=== PATIENT | female | born 1965 | race Caucasian/White ===

== ENCOUNTER 2016-09-19 06:07 | Emergency (ER) | payer MEDICAID ==
[2016-09-19 06:22] VITALS: BMI 25.0
--- NOTE | 2016-09-19 06:26 | C.PDOC ---
History Of Present Illness <Srinivasa Paiz R - Last Filed: 09/19/16 06:32> <BrittanyJocelin A - Last Filed: 09/23/16 18:00> Patient is a 50 year old female who presents to the ER with a complaint of chest pain for the past 4 days. Patient states the pain is localized to the left chest wall and radiates to the left shoulder; reports the pain increases with movement and deep breathing. Denies SOB, nausea, or vomiting. (ChenchoSrinivasa Levine ) History Per: Patient History/Exam Limitations: no limitations Onset/Duration Of Symptoms: Days (4) Current Symptoms Are (Timing): Still Present Associated Symptoms: denies: Nausea, Dyspnea Exacerbating Factors: Movement, Deep Breathing Alleviating Factors: None Recent travel outside of the [place]: No <Srinivasa Paiz - Last Filed: 09/19/16 06:32> <Brittany,Jocelin A - Last Filed: 09/23/16 18:00> Chief Complaint (Nursing): Chest Pain Past Medical History Reviewed: Historical Data, Nursing Documentation, Vital Signs - Medical History PMH: No Chronic Diseases Surgical History: No Surg Hx Family History: States: Unknown Family Hx - Social History Hx Tobacco Use: Yes Hx Alcohol Use: No Hx Substance Use: No - Immunization History Hx Tetanus Toxoid Vaccination: No Hx Influenza Vaccination: No Hx Pneumococcal Vaccination: No <Srinivasa Paiz - Last Filed: 09/19/16 06:32> Review Of Systems Constitutional: Negative for: Fever, Chills Cardiovascular: Positive for: Chest Pain Respiratory: Negative for: Shortness of Breath Gastrointestinal: Negative for: Nausea, Vomiting Musculoskeletal: Positive for: Shoulder Pain <Srinivasa Paiz - Last Filed: 09/19/16 06:32> Physical Exam - Physical Exam Appears: Non-toxic, Other (Mild distress) Skin: Normal Color, Warm, Dry Head: Atraumatic, Normacephalic Oral Mucosa: Moist Chest: Symmetrical, Tenderness (Left upper outer chest wall, worsened with movement of shoulder) Cardiovascular: Rhythm Regular, No Murmur Respiratory: Normal Breath Sounds, No Rales, No Rhonchi, No Wheezing Gastrointestinal/Abdominal: Soft, No Tenderness Extremity: Normal ROM, No Tenderness Neurological/Psych: Oriented x3, Normal Speech, Normal Cognition <Srinivasa Paiz - Last Filed: 09/19/16 06:32> ED Course And Treatment ECG: Interpreted By Me, Viewed By Me ECG Interpretation: Normal, No Acute Changes Interpretation Of ECG: NSR, normal tracings. Rate From EC Pulse Ox Interpretation: Normal Progress Note: EKG, blood work, CXR, and urinalysis ordered. Toradol administered. <Srinivasa Paiz - Last Filed: 09/19/16 06:32> - Laboratory Results Result Diagrams: 09/19/16 06:55 09/19/16 06:55 <Jocelin Soto - Last Filed: 09/23/16 18:00> Disposition <Srinivasa Paiz - Last Filed: 09/19/16 06:32> Counseled Patient/Family Regarding: Studies Performed, Diagnosis, Need For Followup, Rx Given - Disposition Disposition Time: 08:35 - POA Present On Arrival: None <Jocelin Soto - Last Filed: 09/23/16 18:00> - Disposition Referrals: Eladio Willson MD [Medical Doctor] - Disposition: HOME/ ROUTINE Condition: STABLE Additional Instructions: FOLLOW UP WITH YOUR DOCTOR IN 1-2 DAYS USE MEDICATIONS NEEDED RETURN TO ER IF SYMPTOMS WORSEN Prescriptions: Cyclobenzaprine [Cyclobenzaprine HCl] 10 mg PO BID PRN #12 tab PRN Reason: pain/muscle Naproxen [Naprosyn Tab] 375 mg PO BID PRN #15 tab PRN Reason: pain Instructions: Chest Wall Pain (ED) Print Language: CITIZEN OF [place] - Clinical Impression Clinical Impression: Chest wall pain, Muscle spasm - Scribe Statement The provider has reviewed the documentation as recorded by the Scribe <Srinivasa Paiz - Last Filed: 09/19/16 06:32> <Jocelin Soto - Last Filed: 09/23/16 18:00> - Scribe Statement Sebastien Norris All medical record entries made by the Scribe were at my direction and personally dictated by me. I have reviewed the chart and agree that the record accurately reflects my personal performance of the history, physical exam, medical decision making, and the department course for this patient. I have also personally directed, reviewed, and agree with the discharge instructions and disposition. (Srinivasa Paiz) Addendum <Srinivasa aPiz - Last Filed: 09/19/16 06:32> <Jocelin Soto - Last Filed: 09/23/16 18:00> Addendum: 09/19/16 08:30 Patient resting comfortably, in no current pain/distress. States her pain has improved, she can now move her left arm/shoulder without pain. Denies falls /injuries, HTN/hyperlipidemia, DM, tobacco use, family history of [place]. Suspect musculoskeletal pain - blood work, EKG, CXR normal. Patient dishcharged home with rxs for Naprosyn, Flexeril and instructed to follow up with PMD in 1-2 days. (Jocelin Soto)
[2016-09-19 07:00] LABS: BASO # 0.1 K/uL (0.0-0.2); BASO % 1.9 % (0.0-2.0); EOS # 0.4 K/uL (0.0-0.7); EOS % 6.4 % (0.0-4.0); HEMATOCRIT 35.3 % (34.0-47.0); LYMPH # 1.9 K/uL (1.0-4.3); LYMPH % 33.2 % (20.0-40.0); MEAN CORPUSCULAR HEMOGLOBIN 28.4 pg (27.0-31.0); MEAN CORPUSCULAR HGB CONC 33.1 g/dL (33.0-37.0); MEAN PLATELET VOLUME 8.3 fL (7.2-11.7); MONO # 0.5 K/uL (0.0-0.8); MONO % 8.2 % (0.0-10.0); RED CELL DISTRIBUTION WIDTH 14.5 % (11.5-14.5); WHITE BLOOD COUNT 5.7 K/uL (4.8-10.8)
[2016-09-19 07:15] LABS: CHLORIDE 108 mmol/L (98-107); POTASSIUM 4.5 mmol/L (3.6-5.2); SODIUM 141 mmol/L (132-148)
[2016-09-19 07:18] LABS: ALKALINE PHOSPHATASE 90 U/L (38-126); ALT/SGPT 34 U/L (9-52); AST/SGOT 36 U/L (14-36); BILIRUBIN,TOTAL 0.7 mg/dL (0.2-1.3); BLOOD UREA NITROGEN 19 mg/dL (7-17); CALCIUM 8.9 mg/dl (8.6-10.4); CARBON DIOXIDE 26 mmol/L (22-30); GFR AFRICAN-AMERICAN > 60; GLUCOSE,RANDOM 93 mg/dL (65-105); TOTAL PROTEIN 7.7 g/dL (6.3-8.3)
[2016-09-19 07:35] VITALS: TEMP 97.8
--- NOTE | 2016-09-19 08:00 | RAD ---
HISTORY: chest pain COMPARISON: No prior. TECHNIQUE: Chest PA and lateral FINDINGS: LUNGS: No active pulmonary disease. PLEURA: No significant pleural effusion identified. No pneumothorax apparent. CARDIOVASCULAR: Normal. OSSEOUS STRUCTURES: No significant abnormalities. VISUALIZED UPPER ABDOMEN: Normal. OTHER FINDINGS: None. IMPRESSION: No active disease.
[2016-09-19 08:44] VITALS: BP 117/75; PULSE 57; RESP 18; O2SAT 100
--- NOTE | 2016-09-19 22:40 | CARD ---
APPROVED REPORT EKG Measurement Heart [id number] <Conclusion> Normal sinus rhythm Normal ECG
== END 2016-09-19 08:45 | disposition home or self-care (01) ==
LOC: C.ER 06:07
DX: R07.89 Other chest pain (principal); M62.838 Other muscle spasm
CPT/HCPCS: 71020; 80053; 84484; 84703; 85025; 85378; 93005; 96374; 99285; J1885

== ENCOUNTER 2017-03-24 08:53 | Emergency (ER) | payer MEDICAID ==
[2017-03-24 08:53] VITALS: BMI 25.0
[2017-03-24 08:59] VITALS: RESP 18
--- NOTE | 2017-03-24 09:16 | C.PDOC ---
History Of Present Illness Pt is a 51 yo female with PMH signif for tendinitis who now presents with c/o R sided low back pain for the last 2 days.Pt cannot recall any specific injury but does do lots of lifting..States pain is to the R side of her low back, radiates down into her RLE and sole of her foot.Denies any abd pain,no fevers Time Seen by Provider: 03/24/17 09:14 Chief Complaint (Nursing): Back Pain Past Medical History Vital Signs: Last Vital Signs Temp 97.5 F L 03/24/17 10:33 Pulse 61 03/24/17 10:33 Resp 18 03/24/17 10:33 BP 108/69 03/24/17 10:33 Pulse Ox 97 03/24/17 10:33 Family History: States: Unknown Family Hx - Social History Hx Tobacco Use: Yes Hx Alcohol Use: Yes Hx Substance Use: No - Immunization History Hx Tetanus Toxoid Vaccination: No Hx Influenza Vaccination: No Hx Pneumococcal Vaccination: No ED Course And Treatment O2 Sat by Pulse Oximetry: 100 Disposition - Disposition Referrals: [facility] [Outside] Disposition: HOME/ ROUTINE Disposition Time: 18:47 Condition: GOOD Prescriptions: Ibuprofen [Motrin Tab] 800 mg PO TID PRN #21 tab PRN Reason: pain Instructions: Sciatica (ED) Forms: Gen Discharge Inst Estonian, [facility] (Estonian) Print Language: JAPANESE - Clinical Impression Clinical Impression: Low back pain, Sciatica
[2017-03-24 10:33] VITALS: BP 108/69; PULSE 61; TEMP 97.5
[2017-03-24 18:48] VITALS: O2SAT 100
== END 2017-03-24 10:35 | disposition home or self-care (01) ==
LOC: C.ER 08:53
DX: M54.40 Lumbago with sciatica, unspecified side (principal); Z87.891 Personal history of nicotine dependence
CPT/HCPCS: 96372; 99284; J1885

== ENCOUNTER 2017-03-28 06:11 | Emergency (ER) | payer MEDICAID ==
[2017-03-28 06:12] VITALS: BMI 25.0
[2017-03-28 06:40] VITALS: RESP 18
[2017-03-28] MEDS ORDERED: Dexamethasone 4 mg/1 ml IVP STA (07:45)
--- NOTE | 2017-03-28 07:54 | C.PDOC ---
History Of Present Illness Patient reports 1 week history of low back pain which radiates down right leg and pain when she breathes in the back. Patient states that for the past 2 days she feels pain in her right leg and it appears more swollen than usual. Patient reports that she was seen here for similar symptoms 3 days ago, but the symptoms persist prompting visit. Denies numbness, weakness, chest pain, trauma/ fall, fever, abdominal pain, or neck pain. Time Seen by Provider: 03/28/17 07:21 Chief Complaint (Nursing): Lower Extremity Problem/Injury History Per: Patient History/Exam Limitations: no limitations Onset/Duration Of Symptoms: Persistent Current Symptoms Are (Timing): Worse Severity: Moderate Pain Scale Rating Of: 6 Recent travel outside of the [place]: No Past Medical History Reviewed: Historical Data, Nursing Documentation, Vital Signs Vital Signs: Last Vital Signs Temp 98.2 F 03/28/17 10:01 Pulse 65 03/28/17 10:01 Resp 18 03/28/17 10:01 BP 154/80 H 03/28/17 10:01 Pulse Ox 100 03/29/17 11:35 - Medical History PMH: No Chronic Diseases Surgical History: No Surg Hx Family History: States: Other Other Family History: DM - Social History Hx Tobacco Use: Yes Hx Alcohol Use: Yes Hx Substance Use: Yes - Immunization History Hx Tetanus Toxoid Vaccination: No Hx Influenza Vaccination: No Hx Pneumococcal Vaccination: No Review Of Systems Except As Marked, All Systems Reviewed And Found Negative. Musculoskeletal: Positive for: Back Pain, Leg Pain Physical Exam - Physical Exam Appears: Well, No Acute Distress Skin: Normal Color, Warm, Dry, No Rash Head: Atraumatic, Normacephalic Eye(s): bilateral: Normal Inspection, PERRL, EOMI Nose: Normal Oral Mucosa: Moist Throat: Normal, No Erythema, No Exudate Neck: Normal ROM, No Midline Cervical Tenderness, No Paracervical Tenderness, Supple Chest: Symmetrical, No Tenderness Cardiovascular: Rhythm Regular, No Friction Rub, No Murmur Respiratory: Normal Breath Sounds, No Rales, No Rhonchi, No Wheezing Gastrointestinal/Abdominal: Normal Exam, Soft, No Tenderness Back: Normal Inspection, No CVA Tenderness, Paraspinal Tenderness (right sided paralumbar ), Other (No midline tenderness) Extremity: Normal ROM, Calf Tenderness (Mild Right calf tenderness), No Swelling Pulses: Left Femoral: Normal, Right Femoral: Normal, Left Dorsalis Pedis: Normal , Right Dorsalis Pedis: Normal Neurological/Psych: Oriented x3, Normal Speech, Normal Motor Gait: Steady ED Course And Treatment - Laboratory Results Result Diagrams: 03/28/17 08:06 03/28/17 08:06 O2 Sat by Pulse Oximetry: 100 (on RA) Pulse Ox Interpretation: Normal Medical Decision Making Medical Decision Making: Old records reviewed, the patient was last seen in the ED on 03/24/17 for low back pain, was given pain medications and discharged home. Patient is negative for DVT and D dimer is negative. On re-exam, the patient reports improvement of symptoms. Lungs are CTA, heart is RRR, abdomen is soft, non-tender and tolerating PO well. No numbness, weakness or focal deficits, Ambulatory in the ED with steady gait Disposition - Disposition Referrals: Fei Telles MD [Non-Staff] - Disposition: HOME/ ROUTINE Disposition Time: 09:31 Condition: GOOD Additional Instructions: Follow up with the medical doctor within 1-2 days. Return if worsened. Prescriptions: Cyclobenzaprine [Cyclobenzaprine HCl] 10 mg PO BID #14 tab Lidocaine 5% [Lidoderm] 1 each TP DAILY #10 patch Naproxen [Naprosyn] 500 mg PO BID #20 tab Instructions: Lumbar Radiculopathy (ED) Forms: [employer] (Yi) - Clinical Impression Clinical Impression: Sciatica, Lumbar radiculopathy
[2017-03-28] MEDS ORDERED: Dexamethasone 4 mg/1 ml ONE (07:56)
[2017-03-28 08:25] LABS: BASO % 0.8 % (0.0-2.0); EOS # 0.2 K/uL (0.0-0.7); EOS % 3.6 % (0.0-4.0); HEMOGLOBIN 11.3 g/dL (11.0-16.0); LYMPH # 1.4 K/uL (1.0-4.3); LYMPH % 30.1 % (20.0-40.0); MEAN CELL VOLUME 85.8 fL (81.0-99.0); MEAN CORPUSCULAR HEMOGLOBIN 29.1 pg (27.0-31.0); MEAN CORPUSCULAR HGB CONC 33.9 g/dL (33.0-37.0); MONO # 0.4 K/uL (0.0-0.8); NEUT # 2.6 K/uL (1.8-7.0); NEUT % 56.5 % (50.0-75.0); RBC 3.89 Mil/uL (3.80-5.20); RED CELL DISTRIBUTION WIDTH 14.6 % (11.5-14.5); WHITE BLOOD COUNT 4.6 K/uL (4.8-10.8)
[2017-03-28 08:30] LABS: SQUAMOUS EPITHIAL 1 /hpf (0-5); URINE BACTERIA RARE (<OCC); URINE BILIRUBIN NEGATIVE (NEGATIVE); URINE BLOOD NEGATIVE (NEGATIVE); URINE CLARITY Clear (Clear); URINE COLOR Yellow (YELLOW); URINE GLUCOSE (UA) NORMAL (Normal); URINE HYALINE CAST 0-2 /lpf (0-2); URINE LEUKOCYTE ESTERASE NEG Leu/uL (Negative); URINE NITRATE NEGATIVE (NEGATIVE); URINE PROTEIN NEGATIVE (NEGATIVE); URINE UROBILINOGEN NORMAL mg/dL (0.2-1.0)
[2017-03-28 08:31] LABS: BLOOD UREA NITROGEN 23 mg/dL (7-17); GFR AFRICAN-AMERICAN > 60; GFR NON-AFRICAN AMERICAN 52
[2017-03-28] MEDS ORDERED: Lidocaine 5% Patch TD STA (09:18)
[2017-03-28] MEDS ORDERED: Lidocaine 5% Patch TD ONE (09:40)
[2017-03-28 10:02] VITALS: BP 154/80; PULSE 65; TEMP 98.2
--- NOTE | 2017-03-28 14:53 | VASCLAB ---
PROCEDURE: Right Lower Extremity Venous Duplex Exam. HISTORY: Rt leg swelling and pain, r/o DVT PRIORS: None. TECHNIQUE: Right common femoral, femoral, popliteal and posterior tibial, peroneal and great saphenous veins were evaluated. Flow was assessed with color Doppler, compressibility, assessment of phasic flow and augmentation response. Report prepared by MARK Carter, RVT FINDINGS: RIGHT: 1. Common Femoral Vein: 1.1. Compressibility - Fully compressible: Thrombus - None: Flow - Phasic: Augmentation -Normal: Reflux - None. 2. Femoral Vein: 2.1. Compressibility - Fully compressible: Thrombus - None: Flow - Phasic: Augmentation -Normal: Reflux - None. 3. Popliteal Vein: 3.1. Compressibility - Fully compressible: Thrombus - None: Flow - Phasic: Augmentation -Normal: Reflux - None. 4. Posterior Tibial Vein: 4.1. Compressibility - Fully compressible: Thrombus - None: Flow - Phasic: Augmentation -Normal: Reflux - None. 5. Peroneal Vein: 5.1. Compressibility - Fully compressible: Thrombus - None: Flow - Phasic: Augmentation -Normal: Reflux - None. 6. Great Saphenous Vein: 6.1. Compressibility - Fully compressible: Thrombus -None: Flow - Phasic: Augmentation - Normal: Reflux - None. OTHER FINDINGS: IMPRESSION: No evidence of deep or superficial vein thrombosis of the right lower extremity with excellent venous flow. Normal valve function noted of the right side. Normal venous flow noted in the left common femoral vein.
[2017-03-29 11:35] VITALS: O2SAT 100
== END 2017-03-28 10:02 | disposition home or self-care (01) ==
LOC: C.ER 06:11
DX: M54.16 Radiculopathy, lumbar region (principal); M54.30 Sciatica, unspecified side
CPT/HCPCS: 80048; 81001; 84703; 85025; 85378; 93971; 96374; 96375; 99284; J1100; J1885

== ENCOUNTER 2017-03-31 08:35 | Emergency (ER) | payer MEDICAID ==
[2017-03-31 08:36] VITALS: BMI 25.0
[2017-03-31 09:05] VITALS: BP 142/94; PULSE 88; TEMP 98.5; O2SAT 97
--- NOTE | 2017-03-31 09:33 | C.PDOC ---
History Of Present Illness CO RECUR R BUTTOCK/LEG PAIN SINCE YEST. MULT ER VISITS SINCE 03/24 FOR SAME. PS PMD ON VACATION, PENDING APPT NEXT WEEK. RECUR PAIN AFTER BENDING DOWN. R BUTTOCK RADIATION LAT LEG TO KNEE. NO ASSOC WEAK NUMB. NO TRAUMA, FEVER. PS HAD RELIEF W MEDS FROM PRIOR VIST BUT SX RECURRED AFTER BENDING DOWN. EXAM MILD DIST NONTOXIC EXT ATRAUM AROM WO DIFF NONTEND +STRAIGHT LEG R NEURO NO FOCAL DEF MDM ADVISED NEED FOR PMD FU, PRECISION LATHE OPERATOR MGMT Time Seen by Provider: 03/31/17 09:14 Chief Complaint (Nursing): Hip Pain History Per: Patient History/Exam Limitations: no limitations Onset/Duration Of Symptoms: Days (1) Current Symptoms Are (Timing): Still Present Recent travel outside of the [place]: No Past Medical History Reviewed: Historical Data, Nursing Documentation, Vital Signs Vital Signs: Last Vital Signs Temp 98.5 F 03/31/17 09:00 Pulse 88 03/31/17 09:00 Resp 16 03/31/17 09:55 BP 142/94 H 03/31/17 09:00 Pulse Ox 97 03/31/17 10:32 Family History: States: No Known Family Hx - Social History Hx Tobacco Use: Yes Hx Alcohol Use: Yes Hx Substance Use: Yes - Immunization History Hx Tetanus Toxoid Vaccination: No Hx Influenza Vaccination: No Hx Pneumococcal Vaccination: No Review Of Systems Except As Marked, All Systems Reviewed And Found Negative. Constitutional: Negative for: Fever, Chills Musculoskeletal: Positive for: Leg Pain (raditaing pain to the lateral right leg to knee), Other ((+) right buttock/leg pain). Negative for: Back Pain, Foot Pain Neurological: Negative for: Weakness, Numbness Physical Exam - Physical Exam Appears: Non-toxic, In Acute Distress (Mild) Skin: Warm, Dry, No Rash Respiratory: Normal Breath Sounds Back: No CVA Tenderness, Straight Leg Raising (+ right leg) Extremity: Normal ROM (left leg, w/out difficulty), No Tenderness, No Calf Tenderness, No Swelling Neurological/Psych: Oriented x3, Normal Speech, Normal Motor, Normal Sensation, Normal Reflexes Gait: Steady ED Course And Treatment O2 Sat by Pulse Oximetry: 97 (RA) Pulse Ox Interpretation: Normal Progress - Data Reviewed Data Reviewed: Old records Medical Decision Making Medical Decision Making: PLAN: * Lidoderm TD * Flexeril PO * Gabapentin PO * Toradol IM NOTE: Advised need for PMD follow up for fci management Disposition Counseled Patient/Family Regarding: Diagnosis, Need For Followup, Rx Given - Disposition Referrals: Jin Thompson MD [Staff Provider] - YOUR,PMD [Other] Disposition: HOME/ ROUTINE Disposition Time: 09:32 Condition: IMPROVED Prescriptions: Gabapentin [Neurontin] 300 mg PO TID #30 cap Instructions: Sciatica (ED), Back Exercises (ED) Forms: [employer] (Malay), Work Excuse - Clinical Impression Clinical Impression: Sciatica - Scribe Statement The provider has reviewed the documentation as recorded by the Rolandoibmaureen Valverde Provider Attestation: All medical record entries made by the Rolandoibmaureen were at my direction and personally dictated by me. I have reviewed the chart and agree that the record accurately reflects my personal performance of the history, physical exam, medical decision making, and the department course for this patient. I have also personally directed, reviewed, and agree with the discharge instructions and disposition.
[2017-03-31] MEDS ORDERED: Lidocaine 5% Patch TD STA (09:34)
[2017-03-31] MEDS ORDERED: Lidocaine 5% Patch TD ONE (09:43)
[2017-03-31 09:56] VITALS: RESP 16
== END 2017-03-31 09:55 | disposition home or self-care (01) ==
LOC: C.ER 08:35
DX: M54.30 Sciatica, unspecified side (principal)
CPT/HCPCS: 96372; 99284; J1885

== ENCOUNTER 2018-03-13 14:08 | Emergency (ER) | payer MEDICAID ==
[2018-03-13 14:20] VITALS: BMI 24.7
[2018-03-13 14:28] VITALS: TEMP 98
--- NOTE | 2018-03-13 15:42 | RAD ---
HISTORY: cough COMPARISON: Chest x-ray performed 09/19/16 TECHNIQUE: Chest PA and lateral FINDINGS: LUNGS: No focal consolidation. Please note that chest x-ray has limited sensitivity for the detection of pulmonary masses. PLEURA: No significant pleural effusion identified. No definite pneumothorax . CARDIOVASCULAR: Heart size appears within normal limits. No atherosclerotic calcification present. OSSEOUS STRUCTURES: Degenerative changes of the spine. VISUALIZED UPPER ABDOMEN: Unremarkable. OTHER FINDINGS: None. IMPRESSION: No focal consolidation.
[2018-03-13 15:51] VITALS: RESP 20
[2018-03-13 15:59] LABS: SQUAMOUS EPITHIAL 1 /hpf (0-5); URINE BILIRUBIN NEGATIVE (NEGATIVE); URINE BLOOD NEGATIVE (NEGATIVE); URINE CLARITY Clear (Clear); URINE COLOR Yellow (YELLOW); URINE GLUCOSE (UA) NORMAL (Normal); URINE LEUKOCYTE ESTERASE NEG Leu/uL (Negative); URINE PROTEIN NEGATIVE (NEGATIVE); URINE UROBILINOGEN NORMAL mg/dL (0.2-1.0)
--- NOTE | 2018-03-13 16:32 | C.PDOC ---
History Of Present Illness 52 y/o female presents to the ED complaining of right upper back pain began today while at work. Pain then began radiating around to the right rib area. She denies any abdominal pain, nausea, vomiting, diarrhea. Pain worsens with mov ement and deep inspiration. Otherwise patient denies associated cough, fever, or rash. Time Seen by Provider: 03/13/18 14:58 Chief Complaint (Nursing): Back Pain History Per: Patient History/Exam Limitations: no limitations Onset/Duration Of Symptoms: Hrs Current Symptoms Are (Timing): Still Present Quality Of Discomfort: "Pain" Past Medical History Reviewed: Historical Data, Nursing Documentation, Vital Signs Vital Signs: Last Vital Signs Temp 98.0 F 03/13/18 14:20 Pulse 75 03/13/18 14:20 Resp 20 03/13/18 15:46 BP 111/79 03/13/18 14:20 Pulse Ox 99 03/13/18 14:20 - Medical History PMH: Back Problems (Sciatica) Other Surgeries: Wrist surgery Family History: States: Unknown Family Hx - Social History Hx Tobacco Use: Yes Hx Alcohol Use: Yes (former) Hx Substance Use: Yes - Immunization History Hx Tetanus Toxoid Vaccination: No Hx Influenza Vaccination: No Hx Pneumococcal Vaccination: No Review Of Systems Except As Marked, All Systems Reviewed And Found Negative. Constitutional: Negative for: Fever, Chills Cardiovascular: Positive for: Other (Rib pain) Respiratory: Negative for: Cough, Shortness of Breath Gastrointestinal: Negative for: Nausea, Vomiting, Abdominal Pain, Diarrhea Musculoskeletal: Positive for: Back Pain. Negative for: Neck Pain Skin: Negative for: Rash Physical Exam - Physical Exam Appears: Non-toxic, No Acute Distress Skin: Normal Color, Warm, Dry Head: Atraumatic, Normacephalic Eye(s): bilateral: Normal Inspection, PERRL, EOMI Oral Mucosa: Moist Neck: Normal ROM, No Midline Cervical Tenderness, Supple Chest: Symmetrical, Tenderness (Right lateral rib tenderness) Cardiovascular: Rhythm Regular, No Murmur Respiratory: Normal Breath Sounds, No Rales, No Rhonchi, No Wheezing Gastrointestinal/Abdominal: Soft, No Tenderness, Other (No flank tenderness) Back: No CVA Tenderness, No Vertebral Tenderness, Other (Tenderness to right infrascapular region) Extremity: Bilateral: Atraumatic, Normal ROM Neurological/Psych: Oriented x3, Normal Speech ED Course And Treatment - Laboratory Results Result Diagrams: 03/13/18 17:26 03/13/18 17:26 O2 Sat by Pulse Oximetry: 99 (RA) Pulse Ox Interpretation: Normal - Other Rad CXR X-Ray: Read By Radiologist Interpretation: Accession No. : [id number]. Patient Name / ID : ELIN GURROLA / [id number]. Exam Date : 03/13/2018 15:24:02 ( Approved ). Study Comment : Sex / Age : F / 52Y. Creator : Nikki Corcoran MD. Dictator : Nikki Corcoran MD. Pattern Changer And Repairer : Trading Floor Operator : Nikki Corcoran MD. Approver2 : Report Date : 03/13/2018 15:38:31. My Comment : . HISTORY: cough. COMPARISON: Chest x-ray performed 09/19/16. TECHNIQUE: Chest PA and lateral. FINDINGS: LUNGS: No focal consolidation. Please note that chest x-ray has limited sensitivity for the detection of pulmonary masses. PLEURA: No significant pleural effusion identified. No definite pneumothorax . CARDIOVASCULAR: Heart size appears within normal limits. No atherosclerotic calcification present. OSSEOUS STRUCTURES: Degenerative changes of the spine. VISUALIZED UPPER ABDOMEN: Unremarkable. OTHER FINDINGS: None. IMPRESSION: No focal consolidation. Reevaluation Time: 17:10 Reassessment Condition: Unchanged (Patient reports persistent pain after toradol IM, will apply lidoderm patch. Blood work ordered) Medical Decision Making Medical Decision Making: Impression: Musculoskeletal pain Plan: --EKG --Chest x-ray --Urinalysis --60 mg IM Toradol Disposition Counseled Patient/Family Regarding: Studies Performed, Diagnosis, Need For Followup, Rx Given - Disposition Referrals: Eladio Willson MD [Medical Doctor] - Disposition: HOME/ ROUTINE Disposition Time: 18:23 Condition: STABLE Additional Instructions: follow up with your doctor within 2 days call to make an appointment take medications as prescribed return to ER if symptoms worsens or progress Prescriptions: Lidocaine 5% [Lidoderm] 1 ea TD DAILY PRN #10 patch PRN Reason: Pain, Moderate (4-7) Naproxen [Naprosyn] 500 mg PO BID PRN #16 tab PRN Reason: Pain, Moderate (4-7) Instructions: Muscle and Bone Pain (DC) Forms: [facility] ([place]), General Discharge Instructions, Work Excuse - Clinical Impression Clinical Impression: Muscle spasm, Chest wall pain - Scribe Statement The provider has reviewed the documentation as recorded by the Damian Garcia Provider Attestation: All medical record entries made by the Damian were at my direction and personally dictated by me. I have reviewed the chart and agree that the record accurately reflects my personal performance of the history, physical exam, medical decision making, and the department course for this patient. I have also personally directed, reviewed, and agree with the discharge instructions and disposition.
[2018-03-13] MEDS ORDERED: Lidocaine 5% Patch TD STA (17:12)
[2018-03-13] MEDS ORDERED: LIDOCAINE IV STA (17:13)
[2018-03-13] MEDS ORDERED: SODIUM CHLORIDE 0.9% IV STA (17:13)
[2018-03-13 17:32] LABS: BASO % 0.8 % (0.0-2.0); EOS # 0.2 K/uL (0.0-0.7); EOS % 4.4 % (0.0-4.0); HEMOGLOBIN 10.6 g/dL (11.0-16.0); LYMPH # 2.8 K/uL (1.0-4.3); LYMPH % 49.5 % (20.0-40.0); MEAN CORPUSCULAR HEMOGLOBIN 28.9 pg (27.0-31.0); MEAN CORPUSCULAR HGB CONC 32.7 g/dL (33.0-37.0); MEAN PLATELET VOLUME 8.2 fL (7.2-11.7); MONO # 0.5 K/uL (0.0-0.8); MONO % 9.3 % (0.0-10.0); NRBC % 0.1 % (0.0-2.0); RBC 3.67 Mil/uL (3.80-5.20); WHITE BLOOD COUNT 5.6 K/uL (4.8-10.8)
[2018-03-13 17:33] LABS: MEAN CELL VOLUME 88.2 fL (81.0-99.0)
[2018-03-13 17:56] LABS: ALB/GLOB RATIO 1.2 (1.0-2.1); ALT/SGPT 135 U/L (9-52); AST/SGOT 112 U/L (14-36); BLOOD UREA NITROGEN 21 mg/dL (7-17); GFR NON-AFRICAN AMERICAN > 60
[2018-03-13 17:59] VITALS: BP 101/49; PULSE 53
[2018-03-13] MEDS ORDERED: Lidocaine 5% Patch TD ONE (18:01)
[2018-03-13 18:05] LABS: BARBITURATES, UR NEGATIVE (NEGATIVE); OPIATES, UR NEGATIVE (NEGATIVE); PHENCYCLIDINE, UR NEGATIVE (NEGATIVE)
[2018-03-13 18:07] LABS: BENZODIAZEPINES, UR POSITIVE (NEGATIVE)
[2018-03-13 18:24] VITALS: O2SAT 99
== END 2018-03-13 18:47 | disposition home or self-care (01) ==
LOC: C.ER 14:08
DX: M62.838 Other muscle spasm (principal); R07.89 Other chest pain
CPT/HCPCS: 71046; 80053; 80324; 80345; 80346; 80349; 80353; 80358; 80361; 81001; 83735; 83992; 84484; 85025; 85378; 96372; 99285; J1885; J2001